=== PATIENT | male | born 1960 | race Caucasian/White ===

== ENCOUNTER 2018-10-08 08:16 | Inpatient (IN) | payer OTHER ==
[2018-10-08 09:00] VITALS: BMI 26.7
--- NOTE | 2018-10-08 09:43 | HP ---
CIWA Score Nausea/Vomitin-Cont. Nausea/Vomiting Muscle Tremors: 6 Anxiety: 4-Mod. Anxious/Guarded Agitation: 4-Moderately Restless Paroxysmal Sweats: 4-Forehead w/Sweat Beads Orientation: 1-Uncertain about Date Tacttile Disturbances: 2-Mild Itch/Numbness/Burn Auditory Disturbances: 2-Mild Harshness/Frighten Visual Disturbances: 3-Moderate Sensitivity Headache: 6-Very Severe CIWA-Ar Total Score: 39 - Admission Criteria OASAS Guidelines: Admission for Medically Managed Detox: Requires at least one of the followin. CIWA greater than 12 2. Seizures within the past 24 hours 3. Delirium tremens within the past 24 hours 4. Hallucinations within the past 24 hours 5. Acute intervention needed for co occurring medical disorder 6. Acute intervention needed for co occurring psychiatric disorder 7. Severe withdrawal that cannot be handled at a lower level of care (continued vomiting, continued diarrhea, abnormal vital signs) requiring intravenous medication and/or fluids 8. Admission ROS S - HPI Allergies/Adverse Reactions: Allergies Allergy/AdvReac Type Severity Reaction Status Date / Time No Known Allergies Allergy Verified 10/08/18 08:40 History of Present Illness: pt here requesting detox from etoh use , reports " at least " 20 beers/day x 3 mo , prior sobriety x 7 months , first age of use 14 . Pt is ppor historian due to clinical condition , current symptoms as above . latest use - " a few hours ago ", denies seizures, + blackouts . States was in [facility] yesterday , claims no meds given . DWI 1989 , denies driving while intoxicated currently . cannabis " sometimes " tobacco : 1 ppd . PMHX : neuropathy , COPD PSHx : " I can't think straight right now " PSHych : suicide attempt 2 weeks ago y knife , went to [facility] week meds : " I don't know " Exam Limitations: Clinical Condition - Ebola screening Have you traveled outside of the country in the last 21 days: No (N) Have you had contact with anyone from an Ebola affected area: No Do you have a fever: No - Review of Systems Constitutional: See HPI, Loss of Appetite EENT: reports: Other (reading glasses) Respiratory: reports: No Symptoms reported Cardiac: reports: No Symptoms Reported GI: reports: See HPI : reports: No Symptoms Reported Musculoskeletal: reports: Muscle Pain Integumentary: reports: Erythema (legs) Neuro: reports: See HPI, Numbness, Pre-Existing Deficit, Tingling Endocrine: reports: No Symptoms Reported Psychiatric: reports: Orientated x3, Agitated, Anxious, Depressed, Disorientated Patient History - Smoking Cessation Smoking history: Current every day smoker Have you smoked in the past 12 months: Yes Hx Chewing Tobacco Use: No Initiated information on smoking cessation: No - Substances abused Alcohol Substance route: Oral Frequency: Daily Amount used: 10 x 24 oz beer Age of first use: 13 Date of last use: 10/07/18 Family Disease History - Family Disease History Family History: Unable to Obtain Admission Physical Exam BHS - Vital Signs Vital Signs: Vital Signs - 24 hr 10/08/18 08:49 Temperature 97.4 F L Pulse Rate 97 H Respiratory 18 Rate Blood Pressure 140/86 - Physical General Appearance: Yes: Disheveled, Severe Distress, Tremorous, Sweating, Anxious HEENTM: Yes: EOMI, Hearing grossly Normal, Normocephalic, Photophobia, Rhinorrhea, Muffled/Hoarse Voice, Other (edentulous) Respiratory: Yes: Chest Non-Tender, No Respiratory Distress, No Accessory Muscle Use, Rales, Wheezing Neck: Yes: No masses,lesions,Nodules, Trachea in good position Cardiology: Yes: Regular Rhythm, Regular Rate, S1, S2, Tachycardia Abdominal: Yes: Non Tender, Soft Musculoskeletal: Yes: Gait Steady, Other (staggering gait) Extremities: Yes: Pedal Edema, Erythema (amy LE) Neurological: Yes: Alert, Motor Strength 5/5, Numbness, Sensory Deficit, Confused, Disoriented, Depressed Affect Integumentary: Yes: Warm, Erythema (amy LE to knees), Pitting Edema (amy LE to knees) - Diagnostic (1) Alcohol dependence Current Visit: Yes Status: Acute Qualifiers: Substance use status: in withdrawal Complication of substance-induced condition: with unspecified complication Qualified Code(s): F10.239 - Alcohol dependence with withdrawal, unspecified Breathalyzer - Breathalyzer Breathalyzer: 0 Urine Drug Screen - Test Device Lot number: [id number] Expiration date: 07/02/20 - Control Is test valid?: Yes - Results Drug screen NEGATIVE: No Urine drug screen results: THC-Marijuana, BZO-Benzodiazepines Inpatient Rehab Admission - Rehab Decision to Admit Inpatient rehab admission?: No
[2018-10-08] MEDS ORDERED: ALBUTEROL SO4 8 GM HFA INHALER IH PRN (09:46)
[2018-10-08] MEDS ORDERED: ONDANSETRON *ODT* 4 MG TABLET SL PRN (09:52)
[2018-10-08] MEDS ORDERED: MAGNESIUM HYDROX 2400MG/30ML ORAL SUSPENSION 30 ML CUP PO PRN (09:52)
[2018-10-08] MEDS ORDERED: ACETAMINOPHEN 325 MG TABLET (FP) PO PRN ×2 (09:52)
[2018-10-08] MEDS ORDERED: BISMUTH SUBSALICYLATE 262 MG/15 ML BTL PO PRN (09:52)
[2018-10-08] MEDS ORDERED: MAG HYDROX/AL HYDROX/SIMETH 30 ML UNIT-DOSE CUP PO PRN (09:52)
[2018-10-08] MEDS ORDERED: chlordiazePOXIDE HCL 25 MG CAPSULE PO PRN (09:52)
[2018-10-08] MEDS ORDERED: MAGNESIUM CITRATE 300 ML BOTTLE PO PRN (09:52)
[2018-10-08] MEDS ORDERED: MENTHOL/PHENOL 1 EACH UD MM PRN (09:52)
[2018-10-08] MEDS ORDERED: NICOTINE POLACRILEX 2 MG GUM BUC PRN (09:52)
[2018-10-08] MEDS ORDERED: IBUPROFEN 400 MG TABLET (FP) PO PRN (09:52)
[2018-10-08] MEDS ORDERED: guaiFENesin 200 MG/10 ML 10 ML UNIT-DOSE CUPS PO PRN (09:52)
[2018-10-08] MEDS ORDERED: ALBUTEROL SO4 0.083% IH SOL 2.5 MG/3 ML VIAL.NEB. NEB PRN (10:13)
[2018-10-08] MEDS ORDERED: chlordiazePOXIDE HCL 25 MG CAPSULE PO ONE (10:45)
[2018-10-08] MEDS: PRENATAL VITAMINS W/ FOLIC ACID TABLET (FP) PO SCH (11:41)
[2018-10-08] MEDS: chlordiazePOXIDE HCL 25 MG CAPSULE PO SCH ×3 (11:41→22:23)
[2018-10-08] MEDS: FUROSEMIDE 40 MG TABLET (FP) PO SCH (11:41)
[2018-10-08] MEDS: ASPIRIN 81 MG CHEWABLE TABLETS PO SCH (11:41)
[2018-10-08] MEDS: BUDESONIDE/FORMETEROL FUMARATE 80/4.5 mcg INHALER IH SCH ×2 (11:46→22:24)
[2018-10-08] MEDS: THIAMINE HCL 100 MG TABLET (FP) PO SCH (22:24)
[2018-10-08] MEDS: MELATONIN 5 MG TABLETS PO PRN (22:24)
[2018-10-09] MEDS: chlordiazePOXIDE HCL 25 MG CAPSULE PO SCH ×4 (05:41→22:07)
[2018-10-09 10:01] LABS: HEMATOCRIT 44.5 % (35.4-49); HEMOGLOBIN 14.9 GM/dL (11.7-16.9); MCH 33.1 pg (25.7-33.7); MCHC 33.6 g/dl (32.0-35.9); MEAN CELL VOLUME 98.6 fl (80-96); PLATELET COUNT 217 K/MM3 (134-434); RBC 4.51 M/mm3 (4.00-5.60); RDW 15.2 % (11.9-15.9); WHITE BLOOD COUNT 3.9 K/mm3 (4.0-10.0)
[2018-10-09 10:21] LABS: ALBUMIN 3.4 g/dl (3.4-5.0); BILIRUBIN,TOTAL 0.7 mg/dL (0.2-1); CALCIUM 8.9 mg/dL (8.5-10.1); CREATININE 0.8 mg/dL (0.55-1.3); POTASSIUM 3.3 mmol/L (3.5-5.1); TOT PROT 6.8 g/dl (6.4-8.2)
[2018-10-09] MEDS: FUROSEMIDE 40 MG TABLET (FP) PO SCH (10:46)
[2018-10-09] MEDS: ASPIRIN 81 MG CHEWABLE TABLETS PO SCH (10:46)
[2018-10-09] MEDS: PRENATAL VITAMINS W/ FOLIC ACID TABLET (FP) PO SCH (10:46)
[2018-10-09] MEDS: BUDESONIDE/FORMETEROL FUMARATE 80/4.5 mcg INHALER IH SCH ×2 (10:50→22:29)
--- NOTE | 2018-10-09 10:51 | PN ---
S CIWA - CIWA Score Nausea/Vomitin Muscle Tremors: 2 Anxiety: 3 Agitation: 3 Paroxysmal Sweats: 1-Minimal Palms Moist Orientation: 0-Oriented Tacttile Disturbances: 1-Very Mild Itch/Numbness Auditory Disturbances: 1-Very Mild Visual Disturbances: 0-None Headache: 2-Mild CIWA-Ar Total Score: 15 S Progress Note (SOAP) Subjective: alert,irritable,anxious,interrupted sleep,tremor Objective: 10/09/18 10:47 Vital Signs Temperature 98.0 F 10/09/18 09:34 Pulse Rate 74 10/09/18 09:34 Respiratory Rate 17 10/09/18 09:34 Blood Pressure 105/62 10/09/18 09:34 O2 Sat by Pulse Oximetry (%) Laboratory Last Values WBC 3.9 K/mm3 (4.0-10.0) L 10/09/18 07:25 RBC 4.51 M/mm3 (4.00-5.60) 10/09/18 07:25 Hgb 14.9 GM/dL (11.7-16.9) 10/09/18 07:25 Hct 44.5 % (35.4-49) 10/09/18 07:25 MCV 98.6 fl (80-96) H 10/09/18 07:25 MCH 33.1 pg (25.7-33.7) 10/09/18 07:25 MCHC 33.6 g/dl (32.0-35.9) 10/09/18 07:25 RDW 15.2 % (11.9-15.9) 10/09/18 07:25 MPV 8.0 fl (7.5-11.1) 10/09/18 07:25 Sodium 134 mmol/L (136-145) L 10/09/18 07:25 Potassium 3.3 mmol/L (3.5-5.1) L 10/09/18 07:25 Chloride 95 mmol/L (98-107) L 10/09/18 07:25 Carbon Dioxide 32 mmol/L (21-32) 10/09/18 07:25 Anion Gap 7 MMOL/L (8-16) L 10/09/18 07:25 BUN 9 mg/dL (7-18) 10/09/18 07:25 Creatinine 0.8 mg/dL (0.55-1.3) 10/09/18 07:25 Est GFR (CKD-EPI)AfAm 114.13 10/09/18 07:25 Est GFR (CKD-EPI)NonAf 98.47 10/09/18 07:25 Random Glucose 123 mg/dL (74-106) H 10/09/18 07:25 Calcium 8.9 mg/dL (8.5-10.1) 10/09/18 07:25 Total Bilirubin 0.7 mg/dL (0.2-1) 10/09/18 07:25 AST 33 U/L (15-37) 10/09/18 07:25 ALT 41 U/L (13-61) 10/09/18 07:25 Alkaline Phosphatase 85 U/L (45-117) 10/09/18 07:25 Total Protein 6.8 g/dl (6.4-8.2) 10/09/18 07:25 Albumin 3.4 g/dl (3.4-5.0) 10/09/18 07:25 Assessment: 10/09/18 10:48 withdrawal symptom,leukopenia wbc 3.6, hypokalemia k 3.3, initial glucose 123,will do fasting bgm in am,k dur 20 meq po bid for 3 days repeat cbc bgm in am Plan: continue detox
[2018-10-09] MEDS: POTASSIUM CHLORIDE TABS 20 MEQ TABLET.ER (FP) PO SCH ×2 (13:19→22:07)
[2018-10-09] MEDS: hydrOXYzine PAMOATE 25 MG CAPSULE (FP) PO PRN (13:19)
--- NOTE | 2018-10-09 15:19 | CONSULT ---
[facility] Psychiatric Consult - Data Date of interview: 10/09/18 Admission source: [facility] Identifying data: First admission to [facility] for this 58 y/o male self-referred for detoxification (alcohol, cannabis). Examined at [address] [place] [address]. Patient is , no dependents, homeless, unemployed and supported on [facility] benefits. Substance Abuse History: Patient confirms alcohol abuse since age 13-14. Details in current [facility] report as follows : Smoking history: Current every day smoker. Have you smoked in the past 12 months: Yes. Hx Chewing Tobacco Use: No. Initiated information on smoking cessation: No. - Substances abused. Alcohol. Substance route: Oral. Frequency: Daily. Amount used: 10 x 24 oz beer. Age of first use: 13. Date of last use: 10/07/18 Medical History: Consistent with neuropathy. Psychiatric History: Patient admits to a history of one psychiatric hospitalization, two weeks ago, at [facility]. Circumstances of admission : mood dysregulation, suicidal ideation to stab self. Commited for one week. Diagnosed with MDD. Patient does not recall psychotropics prescribed during his hospital course. Mr Mantilla denies history of psychiatric OPD care. No prior history of suicide attempts. Physical/Sexual Abuse/Trauma History: Patient denies history of abuse. Additional Comment: Urine drug screen results: THC-Marijuana, BZO- Benzodiazepines. Noted. Mental Status Exam - Mental Status Exam Alert and Oriented to: Time, Place, Person Cognitive Function: Good Patient Appearance: Well Groomed Mood: Nervous, Withdrawn, Apprehensive Affect: Mood Congruent, Constricted Patient Behavior: Fatigued, Appropriate, Cooperative Speech Pattern: Clear, Appropriate Voice Loudness: Normal Thought Process: Intact, Goal Oriented Thought Disorder: Not Present Hallucinations: Denies Suicidal Ideation: Denies Homicidal Ideation: Denies Insight/Judgement: Poor Sleep: Poorly, Difficulty falling asleep Appetite: Poor, Weight loss Gait/Station: Other (not observed : patient lay in bed for entire interview) Psychiatric Findings - Problem List ([place] 1, 2,3) (1) Alcohol dependence Current Visit: Yes Status: Chronic Qualifiers: Substance use status: in withdrawal Complication of substance-induced condition: with unspecified complication Qualified Code(s): F10.239 - Alcohol dependence with withdrawal, unspecified (2) Nicotine dependence Current Visit: Yes Status: Chronic (3) Substance induced mood disorder Current Visit: Yes Status: Suspected (4) Insomnia Current Visit: Yes Status: Chronic - Initial Treatment Plan Initial Treatment Plan: Psychoeducation. Sleep hygiene. Support. Detoxification. AA meetings. Motivational counseling provided in this session. Trazodone 50 mg po hs (patient's specific request). Side effects/benefits discussed. Mr Mantilla is made aware of the risk of priapism. Gave verbal consent to Observation.
[2018-10-09] MEDS: THIAMINE HCL 100 MG TABLET (FP) PO SCH (22:07)
[2018-10-09] MEDS: traZODone HCL 50 MG TABLET (FP) PO SCH (22:07)
[2018-10-09] MEDS: MELATONIN 5 MG TABLETS PO PRN (22:08)
[2018-10-10] MEDS: hydrOXYzine PAMOATE 25 MG CAPSULE (FP) PO PRN ×2 (03:01→18:43)
[2018-10-10] MEDS: chlordiazePOXIDE HCL 25 MG CAPSULE PO SCH (07:05)
--- NOTE | 2018-10-10 09:55 | PN ---
S CIWA - CIWA Score Nausea/Vomitin-No Nausea/No Vomiting Muscle Tremors: 2 Anxiety: 2 Agitation: 2 Paroxysmal Sweats: 4-Forehead w/Sweat Beads Orientation: 0-Oriented Tacttile Disturbances: 0-None Auditory Disturbances: 0-None Visual Disturbances: 0-None Headache: 2-Mild CIWA-Ar Total Score: 12 S Progress Note (SOAP) Subjective: c/o sweats, headache, anxiety, and shakes. Objective: 10/10/18 09:54 Vital Signs 10/10/18 10/10/18 10/10/18 02:07 06:35 09:21 Temperature 97 F L 98.3 F Pulse Rate 69 69 Respiratory 18 18 18 Rate Blood Pressure 98/63 111/69 Laboratory Last Values WBC 3.9 K/mm3 (4.0-10.0) L 10/09/18 07:25 RBC 4.51 M/mm3 (4.00-5.60) 10/09/18 07:25 Hgb 14.9 GM/dL (11.7-16.9) 10/09/18 07:25 Hct 44.5 % (35.4-49) 10/09/18 07:25 MCV 98.6 fl (80-96) H 10/09/18 07:25 MCH 33.1 pg (25.7-33.7) 10/09/18 07:25 MCHC 33.6 g/dl (32.0-35.9) 10/09/18 07:25 RDW 15.2 % (11.9-15.9) 10/09/18 07:25 Plt Count 217 K/MM3 (134-434) 10/09/18 07:25 MPV 8.0 fl (7.5-11.1) 10/09/18 07:25 Sodium 134 mmol/L (136-145) L 10/09/18 07:25 Potassium 3.3 mmol/L (3.5-5.1) L 10/09/18 07:25 Chloride 95 mmol/L (98-107) L 10/09/18 07:25 Carbon Dioxide 32 mmol/L (21-32) 10/09/18 07:25 Anion Gap 7 MMOL/L (8-16) L 10/09/18 07:25 BUN 9 mg/dL (7-18) 10/09/18 07:25 Creatinine 0.8 mg/dL (0.55-1.3) 10/09/18 07:25 Est GFR (CKD-EPI)AfAm 114.13 10/09/18 07:25 Est GFR (CKD-EPI)NonAf 98.47 10/09/18 07:25 Random Glucose 123 mg/dL (74-106) H 10/09/18 07:25 Calcium 8.9 mg/dL (8.5-10.1) 10/09/18 07:25 Total Bilirubin 0.7 mg/dL (0.2-1) 10/09/18 07:25 AST 33 U/L (15-37) 10/09/18 07:25 ALT 41 U/L (13-61) 10/09/18 07:25 Alkaline Phosphatase 85 U/L (45-117) 10/09/18 07:25 Total Protein 6.8 g/dl (6.4-8.2) 10/09/18 07:25 Albumin 3.4 g/dl (3.4-5.0) 10/09/18 07:25 RPR Titer Nonreactive (NONREACTIVE) 10/09/18 07:25 Labs noted. Assessment: 10/10/18 09:54 AOX3, in no respiratory distress, full rom, ambulating in the unit. Withdrawal symptoms. Plan: continue detox increase fluids.
[2018-10-10] MEDS: BUDESONIDE/FORMETEROL FUMARATE 80/4.5 mcg INHALER IH SCH ×2 (10:10→21:45)
[2018-10-10] MEDS: chlordiazePOXIDE HCL 10 MG CAPSULE PO SCH ×3 (10:11→22:01)
[2018-10-10] MEDS: FUROSEMIDE 40 MG TABLET (FP) PO SCH (10:11)
[2018-10-10] MEDS: POTASSIUM CHLORIDE TABS 20 MEQ TABLET.ER (FP) PO SCH ×2 (10:11→21:45)
[2018-10-10] MEDS: PRENATAL VITAMINS W/ FOLIC ACID TABLET (FP) PO SCH (10:12)
[2018-10-10] MEDS: ASPIRIN 81 MG CHEWABLE TABLETS PO SCH (11:00)
[2018-10-10] MEDS ORDERED: chlordiazePOXIDE HCL 10 MG CAPSULE PO PRN (11:00)
[2018-10-10] MEDS: THIAMINE HCL 100 MG TABLET (FP) PO SCH (21:45)
[2018-10-10] MEDS: traZODone HCL 50 MG TABLET (FP) PO SCH (21:45)
[2018-10-10] MEDS: MELATONIN 5 MG TABLETS PO PRN (23:52)
[2018-10-11] MEDS: chlordiazePOXIDE HCL 10 MG CAPSULE PO SCH (06:04)
[2018-10-11 06:06] VITALS: BP 98/63; PULSE 63; TEMP 98.3
[2018-10-11] MEDS: POTASSIUM CHLORIDE TABS 20 MEQ TABLET.ER (FP) PO SCH (09:21)
[2018-10-11] MEDS: ASPIRIN 81 MG CHEWABLE TABLETS PO SCH (09:21)
[2018-10-11] MEDS: PRENATAL VITAMINS W/ FOLIC ACID TABLET (FP) PO SCH (09:21)
[2018-10-11] MEDS: FUROSEMIDE 40 MG TABLET (FP) PO SCH (09:21)
[2018-10-11] MEDS: BUDESONIDE/FORMETEROL FUMARATE 80/4.5 mcg INHALER IH SCH (09:21)
--- NOTE | 2018-10-11 10:45 | DS ---
[facility] Detox Discharge Summary Admission Date: 10/08/18 Discharge Date: 10/11/18 - History Present History: Alcohol Dependence Additional Comments: 58 years old male admitted on 10/08/18 for alcohol withdrawal stabilization feeling better today preferring Pertinent Past History: encourage seeking [facility] for - Physical Exam Results Vital Signs: Vital Signs Temperature 98.3 F 10/11/18 06:05 Pulse Rate 63 10/11/18 06:05 Respiratory Rate 18 10/11/18 06:05 Blood Pressure 98/63 10/11/18 06:05 O2 Sat by Pulse Oximetry (%) Laboratory Last Values WBC 3.9 K/mm3 (4.0-10.0) L 10/09/18 07:25 RBC 4.51 M/mm3 (4.00-5.60) 10/09/18 07:25 Hgb 14.9 GM/dL (11.7-16.9) 10/09/18 07:25 Hct 44.5 % (35.4-49) 10/09/18 07:25 MCV 98.6 fl (80-96) H 10/09/18 07:25 MCH 33.1 pg (25.7-33.7) 10/09/18 07:25 MCHC 33.6 g/dl (32.0-35.9) 10/09/18 07:25 RDW 15.2 % (11.9-15.9) 10/09/18 07:25 Plt Count 217 K/MM3 (134-434) 10/09/18 07:25 MPV 8.0 fl (7.5-11.1) 10/09/18 07:25 Sodium 134 mmol/L (136-145) L 10/09/18 07:25 Potassium 3.3 mmol/L (3.5-5.1) L 10/09/18 07:25 Chloride 95 mmol/L (98-107) L 10/09/18 07:25 Carbon Dioxide 32 mmol/L (21-32) 10/09/18 07:25 Anion Gap 7 MMOL/L (8-16) L 10/09/18 07:25 BUN 9 mg/dL (7-18) 10/09/18 07:25 Creatinine 0.8 mg/dL (0.55-1.3) 10/09/18 07:25 Est GFR (CKD-EPI)AfAm 114.13 10/09/18 07:25 Est GFR (CKD-EPI)NonAf 98.47 10/09/18 07:25 Random Glucose 123 mg/dL (74-106) H 10/09/18 07:25 Fasting Glucose 96 mg/dL (74-106) 10/10/18 08:00 Calcium 8.9 mg/dL (8.5-10.1) 10/09/18 07:25 Total Bilirubin 0.7 mg/dL (0.2-1) 10/09/18 07:25 AST 33 U/L (15-37) 10/09/18 07:25 ALT 41 U/L (13-61) 10/09/18 07:25 Alkaline Phosphatase 85 U/L (45-117) 10/09/18 07:25 Total Protein 6.8 g/dl (6.4-8.2) 10/09/18 07:25 Albumin 3.4 g/dl (3.4-5.0) 10/09/18 07:25 RPR Titer Nonreactive (NONREACTIVE) 10/09/18 07:25 lab noted patient agrees to bring in medication list and lab report to his primary care provider Pertinent Admission Physical Exam Findings: alcohol withdrawal sx Laboratory 10/09/18 10/09/18 10/09/18 07:25 07:25 07:25 WBC 3.9 K/mm3 L K/mm3 (4.0-10.0) RBC 4.51 M/mm3 M/mm3 (4.00-5.60) Hgb 14.9 GM/dL GM/dL (11.7-16.9) Hct 44.5 % % (35.4-49) MCV 98.6 fl H fl (80-96) MCH 33.1 pg pg (25.7-33.7) MCHC 33.6 g/dl g/dl (32.0-35.9) RDW 15.2 % % (11.9-15.9) Plt Count 217 K/MM3 K/MM3 (134-434) MPV 8.0 fl fl (7.5-11.1) Sodium 134 mmol/L L mmol/L (136-145) Potassium 3.3 mmol/L L mmol/L (3.5-5.1) Chloride 95 mmol/L L mmol/L (98-107) Carbon Dioxide 32 mmol/L mmol/L (21-32) Anion Gap 7 MMOL/L L MMOL/L (8-16) BUN 9 mg/dL mg/dL (7-18) Creatinine 0.8 mg/dL mg/dL (0.55-1.3) Est GFR (CKD-EPI)AfAm 114.13 Est GFR (CKD-EPI)NonAf 98.47 Random Glucose 123 mg/dL H mg/dL (74-106) Fasting Glucose Calcium 8.9 mg/dL mg/dL (8.5-10.1) Total Bilirubin 0.7 mg/dL mg/dL (0.2-1) AST 33 U/L U/L (15-37) ALT 41 U/L U/L (13-61) Alkaline Phosphatase 85 U/L U/L (45-117) Total Protein 6.8 g/dl g/dl (6.4-8.2) Albumin 3.4 g/dl g/dl (3.4-5.0) RPR Titer Nonreactive (NONREACTIVE) 10/10/18 08:00 WBC RBC Hgb Hct MCV MCH MCHC RDW Plt Count MPV Sodium Potassium Chloride Carbon Dioxide Anion Gap BUN Creatinine Est GFR (CKD-EPI)AfAm Est GFR (CKD-EPI)NonAf Random Glucose Fasting Glucose 96 mg/dL mg/dL (74-106) Calcium Total Bilirubin AST ALT Alkaline Phosphatase Total Protein Albumin RPR Titer Laboratory Last Values WBC 3.9 K/mm3 (4.0-10.0) L 10/09/18 07:25 RBC 4.51 M/mm3 (4.00-5.60) 10/09/18 07:25 Hgb 14.9 GM/dL (11.7-16.9) 10/09/18 07:25 Hct 44.5 % (35.4-49) 10/09/18 07:25 MCV 98.6 fl (80-96) H 10/09/18 07:25 MCH 33.1 pg (25.7-33.7) 10/09/18 07:25 MCHC 33.6 g/dl (32.0-35.9) 10/09/18 07:25 RDW 15.2 % (11.9-15.9) 10/09/18 07:25 Plt Count 217 K/MM3 (134-434) 10/09/18 07:25 MPV 8.0 fl (7.5-11.1) 10/09/18 07:25 Sodium 134 mmol/L (136-145) L 10/09/18 07:25 Potassium 3.3 mmol/L (3.5-5.1) L 10/09/18 07:25 Chloride 95 mmol/L (98-107) L 10/09/18 07:25 Carbon Dioxide 32 mmol/L (21-32) 10/09/18 07:25 Anion Gap 7 MMOL/L (8-16) L 10/09/18 07:25 BUN 9 mg/dL (7-18) 10/09/18 07:25 Creatinine 0.8 mg/dL (0.55-1.3) 10/09/18 07:25 Est GFR (CKD-EPI)AfAm 114.13 10/09/18 07:25 Est GFR (CKD-EPI)NonAf 98.47 10/09/18 07:25 Random Glucose 123 mg/dL (74-106) H 10/09/18 07:25 Fasting Glucose 96 mg/dL (74-106) 10/10/18 08:00 Calcium 8.9 mg/dL (8.5-10.1) 10/09/18 07:25 Total Bilirubin 0.7 mg/dL (0.2-1) 10/09/18 07:25 AST 33 U/L (15-37) 10/09/18 07:25 ALT 41 U/L (13-61) 10/09/18 07:25 Alkaline Phosphatase 85 U/L (45-117) 10/09/18 07:25 Total Protein 6.8 g/dl (6.4-8.2) 10/09/18 07:25 Albumin 3.4 g/dl (3.4-5.0) 10/09/18 07:25 RPR Titer Nonreactive (NONREACTIVE) 10/09/18 07:25 lab noted patient acknowledges K+ rich food discuss lasix related low K+ patient will return to primary care provider repeat K+ serum level with lasix adjustment - Treatment Hospital Course: Detox Protocol Followed, Detoxed Safely, Responded well, Discharged Condition Good, Rehab Referral Accepted Patient has Accepted a Rehab Referral to: community self help support group - Medication Discharge Medications: Ambulatory Orders Albuterol Sulfate Inhaler - [Ventolin HFA Inhaler -] 2 inh PO Q4H PRN 10/08/18 Aspirin [ASA -] 81 mg PO DAILY 10/08/18 Budesonide/Formeterol Fumarate [SYMBICORT 80/4.5mcg -] 1 inh PO BID 10/08/18 Furosemide 40 mg PO DAILY 10/08/18 Gabapentin 300 mg PO BID 10/08/18 - Diagnosis (1) Alcohol dependence Status: Chronic Qualifiers: Substance use status: in withdrawal Complication of substance-induced condition: with unspecified complication Qualified Code(s): F10.239 - Alcohol dependence with withdrawal, unspecified (2) Nicotine dependence Status: Chronic (3) Substance induced mood disorder Status: Suspected (4) COPD (chronic obstructive pulmonary disease) Status: Chronic Qualifiers: COPD type: emphysema Emphysema type: unspecified Qualified Code(s): J43.9 - Emphysema, unspecified (5) CHF (congestive heart failure) Status: Chronic Qualifiers: Heart failure type: unspecified Heart failure chronicity: unspecified Qualified Code(s): I50.9 - Heart failure, unspecified - AMA Did Patient Leave Against Medical Advice: No BHS CIWA - CIWA Score Nausea/Vomitin-No Nausea/No Vomiting Muscle Tremors: 1-None Visible, but [place] Anxiety: 2 Agitation: 1-Slight > Activity Paroxysmal Sweats: No Perspiration Orientation: 0-Oriented Tacttile Disturbances: 1-Very Mild Itch/Numbness Auditory Disturbances: 0-None Visual Disturbances: 0-None Headache: 0-None Present CIWA-Ar Total Score: 5
[2018-10-11] MEDS ORDERED: chlordiazePOXIDE HCL 10 MG CAPSULE PO SCH (11:00)
== END 2018-10-11 09:25 | disposition home or self-care (01) | DRG 775 ==
LOC: YASAS 08:16 → Y3N 10:23
PROVIDERS: ADMIT Surgery; ATTEND Surgery
PROC: HZ2ZZZZ Detoxification Services for Substance Abuse Treatment (ICD-10-PCS; principal; 2018-10-08)
DX: F10.230 Alcohol dependence with withdrawal, uncomplicated (principal); F17.210 Nicotine dependence, cigarettes, uncomplicated; F19.24 Other psychoactive substance dependence with psychoactive substance-induced mood disorder; J43.9 Emphysema, unspecified; I50.9 Heart failure, unspecified; E87.6 Hypokalemia; G47.00 Insomnia, unspecified
CPT/HCPCS: 36415; 80053; 82947; 85027; 86593